=== PATIENT | female | born 1955 | race Hispanic/Latino ===

== ENCOUNTER 2020-03-29 15:35 | Inpatient (IN) | payer OTHER, SELFPAY ==
[~2020-03-29] VITALS: Ht 147.3 cm; Wt 66.9 kg
[2020-03-29 16:20] LABS: BASOPHILS % (AUTO) 0.2 % (0.0-5.0); EOSINOPHILS % (AUTO) 0.2 % (0.0-8.0); HEMATOCRIT 46.2 % (36-48); LYMPHOCYTES % (AUTO) 2.5 % (21.0-51.0); MEAN CORPUSCULAR HEMOGLOBIN 27.5 pg (27.0-33.0); MEAN CORPUSCULAR HGB CONC 31.8 g/dL (32.0-36.0); MEAN CORPUSCULAR VOLUME 86.4 fL (79-99); NEUTROPHILS % (AUTO) 91.9 % (40.0-77.0); PLATELET COUNT (AUTO) 500 K/uL (130-400); RED BLOOD CELL COUNT(AUTO) 5.35 MIL/uL (4.00-5.50); RED CELL DISTRIBUTION WIDTH 15.9 % (11.0-15.5)
[2020-03-29 16:22] LABS: WHITE BLOOD COUNT (AUTO) 32.1 K/uL (4.8-10.8)
[2020-03-29 16:35] LABS: ALBUMIN 4.6 g/dL (3.5-5.0); BILIRUBIN,TOTAL 1.3 mg/dL (0.2-1.0); TOTAL PROTEIN, SERUM 8.4 g/dL (6.0-8.3)
[2020-03-29] MEDS ORDERED: ONDANSETRON HCL 4 MG/2 ML VIAL ONE ×2 (16:43→22:42)
[2020-03-29] MEDS ORDERED: SODIUM CHLORIDE 0.9% 100 ML IV ONE (16:44)
[2020-03-29] MEDS ORDERED: SODIUM CHLORIDE 0.9% 1000ML 1,000 ML IV ONE ×2 (16:44→23:56)
[2020-03-29 16:47] LABS: BAND NEUTROPHILS % (MANUAL) 6 % (0-2); LYMPHOCYTES % (MANUAL) 4 % (22-44); MAN.DIFF COMMENT-IMPRESSION MANUAL DIFFERENTIAL; MONOCYTES % (MANUAL) 3 % (2-9); REACTIVE LYMPHOCYTES 3 % (0-0); SEGMENTED NEUTROPHILS % 84 % (40-70)
[2020-03-29 16:49] LABS: PLATELET MORPHOLOGY COMMENT LARGE PLTS PRESENT
[2020-03-29 16:50] LABS: POTASSIUM 2.9 mmol/L (3.5-5.1)
[2020-03-29 17:26] LABS: BILIRUBIN,URINE Small (NEGATIVE); COLOR,URINE Dark Yellow (YELLOW); GLUCOSE, URINE (UA) Negative (NEGATIVE); KETONES,URINE Trace mg/dL (NEGATIVE); LEUKOCYTE ESTERASE ,URINE Trace (NEGATIVE); NITRATE,URINE Negative (NEGATIVE); OCCULT BLOOD,URINE Negative (NEGATIVE); PH,URINE 5.5 (5.0-8.0); PROTEIN,URINE POS 2+ mg/dL (NEGATIVE)
[2020-03-29] MEDS ORDERED: CEFTRIAXONE SODIUM 1 GM ONE (17:36)
[2020-03-29] MEDS ORDERED: AZITHROMYCIN 500MG+NS 250ML 250 ML IV ONE (17:36)
[2020-03-29 17:44] LABS: INR 0.93 (0.85-1.15); PARTIAL THROMBOPLASTIN TIME 27.1 SEC (26.3-35.5); PROTHROMBIN TIME 10.1 SEC (9.6-11.6)
[2020-03-29 18:16] LABS: APPEARANCE,URINE CLOUDY (CLEAR)
[2020-03-29 18:17] LABS: BACTERIA,URINE Moderate /HPF (None Seen); RBC,URINE 0-1 /HPF (0-1); SQUAMOUS EPITHELIAL CELL,UR Few /HPF (0-2)
[2020-03-29] MEDS: SODIUM CHLORIDE 0.9% 1000ML 1,000 ML IV SCH (18:58)
[2020-03-29] MEDS ORDERED: ONDANSETRON HCL 4 MG/2 ML VIAL IV PRN (19:00)
[2020-03-29] MEDS ORDERED: LACTULOSE 20 GM/30 ML UDCUP PO PRN (19:00)
[2020-03-29] MEDS ORDERED: MORPHINE SULFATE 2 MG/ML 1ML SYG IV PRN (19:00)
[2020-03-29] MEDS ORDERED: ALBUTEROL INHALER 90MCG/INH IH PRN (19:00)
[2020-03-29] MEDS ORDERED: ACETAMINOPHEN 325 MG TAB PO PRN ×2 (19:00)
[2020-03-29] MEDS ORDERED: DOXYCYCLINE 100MG+NS 250ML 250 ML IV SCH (19:15)
[2020-03-29] MEDS: CEFEPIME HCL 1 GM VIAL IVP SCH (19:15)
[2020-03-29] MEDS ORDERED: CEFEPIME HCL 1 GM VIAL ONE (19:41)
[2020-03-29 19:51] LABS: HEMOGLOBIN A1C 6.2 % (4.0-6.0)
[2020-03-29] MEDS ORDERED: VANCOMYCIN 1GM+NS 250ML 250 ML IV ONE (22:00)
[2020-03-29] MEDS ORDERED: ZOSYN 3.375GM+NS 50ML 50 ML IV ONE (22:40)
[2020-03-30] VITALS (28 sets, daily range): BP systolic 101–159; BP diastolic 38–90
--- NOTE | 2020-03-30 | NUR ---
ADMISSION PT RECEIVED FROM ER AT THIS TIME. PT AAO X 3 DENIES ANY CHEST PAIN OR SHORTNESS OF BREATH. PT WEAK ABLE TO SLOWLY TRANSFER SELF FROM STRETCHER TO BED. PT PLACED ON BEDSIDE MONITOR HR 80'S SR WITH PAC'S. DIMINISHED BREATH SOUNDS AUSCULTATED. LEFT NARE NG TUBE TUBE NOTED PLACEMENT ASSESSED AND CONFIRMED WITH AIR BOLUS THEN PLACED TO LIWS DRAINAGE BLOOD TINGED. PT WITH 20G PIV TO LEFT FOREARM INFUSING PROTONIX AND 18G PIV TO RIGHT AC INFUSING VANCOMYCIN TO BE FOLLOWED WITH NS AT 100ML/HR. PLAN OF CARE DISCUSSED WILL CONTINUE TO MONITOR. SCDS APPLIED TO BILATERAL LOWER EXTS. SEE ASSESSMENT
[2020-03-30] MEDS: PANTOPRAZOLE SODIUM 80 MG in SODIUM CHLORIDE 0.9% 100 ML IV SCH ×2 (01:23→14:00)
[2020-03-30 03:45] LABS: BASOPHILS % (AUTO) 0.1 % (0.0-5.0); EOSINOPHILS % (AUTO) 0.1 % (0.0-8.0); HEMATOCRIT 37.5 % (36-48); LYMPHOCYTES % (AUTO) 2.5 % (21.0-51.0); MEAN CORPUSCULAR HEMOGLOBIN 27.8 pg (27.0-33.0); MEAN CORPUSCULAR HGB CONC 32.3 g/dL (32.0-36.0); MEAN CORPUSCULAR VOLUME 86.2 fL (79-99); MONOCYTES % (AUTO) 4.8 % (3.0-13.0); NEUTROPHILS % (AUTO) 91.7 % (40.0-77.0); PLATELET COUNT (AUTO) 275 K/uL (130-400); RED BLOOD CELL COUNT(AUTO) 4.35 MIL/uL (4.00-5.50); RED CELL DISTRIBUTION WIDTH 15.8 % (11.0-15.5); WHITE BLOOD COUNT (AUTO) 25.3 K/uL (4.8-10.8)
[2020-03-30 04:04] LABS: CREATININE 2.3 mg/dL (0.5-1.5)
[2020-03-30] MEDS: SODIUM CHLORIDE 0.9% 1000ML 1,000 ML IV SCH ×3 (04:28→19:47)
[2020-03-30 04:48] LABS: POTASSIUM 2.8 mmol/L (3.5-5.1)
[2020-03-30] MEDS ORDERED: CEFEPIME HCL 1 GM VIAL ONE ×2 (05:11→10:13)
[2020-03-30] MEDS ORDERED: POTASSIUM CHLORIDE 20 MEQ/100 ML BAG IV ONE (05:30)
[2020-03-30] MEDS: INSULIN HUMULIN R 100 UNIT/ML 3ML SQ SCH ×4 (06:00→17:46)
[2020-03-30] MEDS: CEFEPIME HCL 1 GM VIAL IVP SCH (06:04)
[2020-03-30] MEDS ORDERED: RENAL DOSE IV PRN (09:30)
[2020-03-30 09:39] LABS: AMPHET/METH SCREEN,URINE NEGATIVE (NEGATIVE); BARBITURATE SCREEN, URINE NEGATIVE (NEGATIVE); BENZODIAZEPINES SCREEN,URINE NEGATIVE (NEGATIVE); CANNABINOID SCREEN,URINE NEGATIVE (NEGATIVE); COCAINE SCREEN,URINE NEGATIVE (NEGATIVE); OPIATE SCREEN,URINE NEGATIVE (NEGATIVE); PHENCYCLIDINE SCREEN,URINE NEGATIVE (NEGATIVE)
[2020-03-30 09:44] LABS: CREATININE,URINE RANDOM 337 mg/dL (30-135); SODIUM,URINE RANDOM 27 mmol/l (40-220)
[2020-03-30] MEDS ORDERED: CEFEPIME HCL 1 GM VIAL IVP SCH (10:00)
[2020-03-30] MEDS ORDERED: POTASSIUM CHLORIDE 20MEQ/100ML 100 ML IV ONE (10:14)
[2020-03-30] MEDS: POTASSIUM CHLORIDE 20 MEQ/100 ML BAG IV SCH ×2 (10:33→18:22)
[2020-03-30] MEDS ORDERED: SODIUM CHLORIDE 0.9% 1000ML 1,000 ML IV ONE (11:00)
--- NOTE | 2020-03-30 11:56 | NUR ---
EGD Patient taken to EGD
[2020-03-30] MEDS ORDERED: SUCCINYLCHOLINE 200MG/10ML SYR ONE (12:17)
[2020-03-30] MEDS ORDERED: PROPOFOL 10 MG/ML 20ML VIAL IV ONE (12:17)
--- NOTE | 2020-03-30 15:36 | NUR ---
MARICRUZ PLAN MD IN ROOM WITH PATIENT GOING TO TRANSFER TO HIGHER LEVEL OF CARE. [employer] COMM[employer]ICATION[employer] SOFTWARE CONSULTANT WORKING ON TRANSFER. Addendum: 03/30/20 at 1537 by PERICO WESTON RN CM Amended: Links added.
[2020-03-30 17:25] LABS: POTASSIUM 3.2 mmol/L (3.5-5.1)
[2020-03-30 17:31] LABS: CREATININE 1.5 mg/dL (0.5-1.5)
[2020-03-30] MEDS ORDERED: LIDOCAINE HCL-MPF 1% 2ML VIAL IV PRN (18:00)
[2020-03-30] MEDS ORDERED: POTASSIUM CHLORIDE 10MEQ/100ML 100 ML IV PRN (18:00)
--- NOTE | 2020-03-30 19:00 | NUR ---
[facility] called for transport
--- NOTE | 2020-03-30 19:05 | NUR ---
[facility] medical report Gave report to Jayla HANCOCK from [facility]. Patients plan of care reviewed. All questions answered patient to be transferred for surgical intervention.
--- NOTE | 2020-03-30 21:12 | NUR ---
late entry 1350 transfer request for higher level of care for surgical service for gastric volvulus since no surgeon [employer] liaison [place] [facility] [place] [address] [place] staff surgeons prior to transferring spoke with Dr harrison decline not oc. 1425 DR rubio in surgery unable to take pt [address] rollins. [address] [facility] declined no beds. [address] [facility] declined no beds. [address] [facility] ask for my doctor to call and speak with Dr ernestina morales at [phone] for 1:1 report; 1500 information fax to [facility] 1520 Dr coe here on rounds to speak to spouse regarding transfer. 1535 information re fax to [facility]. 1653 [facility] call back still working on acceptance by surgeon and oc district administrator. [facility] call back Surgeon Dr Ha requesting for Lap endo stitch and surgi dac which will be sent with pt . 1802 [facility] call back with acceptance to ICU primary nurse to call report to [phone] Manuel and surgeon Dr Ha. consent sign and EMS set up . now awaiting for EMS. Corbin luis
--- NOTE | 2020-03-30 22:05 | NUR ---
handoff given to [facility] medics patient being transferred to [place], patient hemodynamically stable alert and oriented, patient requesting for to notified.
== END 2020-03-30 22:04 | disposition short-term general hospital (02) | DRG 871 ==
LOC: EDH 15:35 → EDHIP 15:36 → 2CH 23:52
PROVIDERS: ADMIT Internal Medicine; ATTEND Internal Medicine
PROC: 0DB68ZX Excision of Stomach, Via Natural or Artificial Opening Endoscopic, Diagnostic (ICD-10-PCS; principal; 2020-03-30)
PROC: 0D9680Z Drainage of Stomach with Drainage Device, Via Natural or Artificial Opening Endoscopic (ICD-10-PCS; 2020-03-30)
DX: A41.9 Sepsis, unspecified organism (principal); J18.9 Pneumonia, unspecified organism; K56.2 Volvulus; K57.31 Diverticulosis of large intestine without perforation or abscess with bleeding; N17.9 Acute kidney failure, unspecified; N39.0 Urinary tract infection, site not specified; E87.4 Mixed disorder of acid-base balance; K31.1 Adult hypertrophic pyloric stenosis; E87.6 Hypokalemia; D64.9 Anemia, unspecified; E86.1 Hypovolemia; K21.0 Gastro-esophageal reflux disease with esophagitis; K44.9 Diaphragmatic hernia without obstruction or gangrene; K80.20 Calculus of gallbladder without cholecystitis without obstruction; Z20.828 Contact with and (suspected) exposure to other viral communicable diseases; K31.89 Other diseases of stomach and duodenum
CPT/HCPCS: 36415; 43239; 71045; 71250; 74150; 76770; 80048; 80053; 80305; 81001; 82270; 82570; 82948; 83036; 83605; 84300; 84484; 85025; 85378; 85610; 85730; 86140; 86850; 86900; 86901; 86922; 87040; 87088; 87486; 87581; 87633; 87635; 87798; 88305; 88313; 88342; 93005; 99291; A4344; C9113; G0378; J0330; J0456; J0692; J0696; J2405; J2543; J2704; J3370; J3480; J3490; J7030

== ENCOUNTER → 2022-10-03 | Outpatient (CLI) | payer OTHER | END | disposition home or self-care (01) | LOC: SHCH 07:56 | PROVIDERS: ATTEND Student in an Organized Health Care Education/Training Program | DX: I51.7 Cardiomegaly (principal); E78.5 Hyperlipidemia, unspecified; R00.1 Bradycardia, unspecified | CPT/HCPCS: 93306 ==

== ENCOUNTER → 2022-10-29 | Outpatient (CLI) | payer OTHER ==
[2022-10-29 16:22] LABS: BASOPHILS % (AUTO) 0.4 % (0.0-5.0); EOSINOPHILS % (AUTO) 2.5 % (0.0-8.0); HEMATOCRIT 43.9 % (36-48); LYMPHOCYTES % (AUTO) 16.8 % (21.0-51.0); MEAN CORPUSCULAR HGB CONC 28.9 g/dL (32.0-36.0); MEAN CORPUSCULAR VOLUME 86.4 fL (79-99); MONOCYTES % (AUTO) 5.9 % (3.0-13.0); NEUTROPHILS % (AUTO) 73.8 % (40.0-77.0); PLATELET COUNT (AUTO) 240 K/uL (130-400); RED BLOOD CELL COUNT(AUTO) 5.08 MIL/uL (4.00-5.50); RED CELL DISTRIBUTION WIDTH 14.7 % (11.0-15.5); WHITE BLOOD COUNT (AUTO) 7.1 K/uL (4.8-10.8)
[2022-10-29 16:46] LABS: ALBUMIN 3.6 g/dL (3.5-5.0); CREATININE 1.2 mg/dL (0.5-1.5); POTASSIUM 4.7 mmol/L (3.5-5.1); THYROID STIMULATING HORMONE 3.51 uIU/mL (0.36-3.74); TOTAL PROTEIN, SERUM 6.8 g/dL (6.0-8.3)
[2022-10-29 16:56] LABS: HEMOGLOBIN A1C 6.8 % (4.0-6.0)
== END | disposition home or self-care (01) ==
LOC: LAB 09:07
PROVIDERS: ATTEND Student in an Organized Health Care Education/Training Program
DX: E78.1 Pure hyperglyceridemia (principal); E78.5 Hyperlipidemia, unspecified; R00.1 Bradycardia, unspecified; Z79.82 Long term (current) use of aspirin; Z79.899 Other long term (current) drug therapy
CPT/HCPCS: 36415; 80053; 80061; 83036; 84443; 85025

== ENCOUNTER → 2024-04-08 | Outpatient (CLI) | payer OTHER, MEDICARE ==
[2024-04-08 15:47] LABS: ALBUMIN 3.6 g/dL (3.5-5.0); BILIRUBIN,TOTAL 0.5 mg/dL (0.2-1.0); CREATININE 1.1 mg/dL (0.5-1.0); POTASSIUM 4.5 mmol/L (3.5-5.1); TOTAL PROTEIN, SERUM 6.8 g/dL (6.0-8.3)
== END | disposition home or self-care (01) ==
LOC: LAB 11:31
PROVIDERS: ATTEND Student in an Organized Health Care Education/Training Program
DX: R00.1 Bradycardia, unspecified (principal); E78.5 Hyperlipidemia, unspecified; Z82.49 Family history of ischemic heart disease and other diseases of the circulatory system
CPT/HCPCS: 36415; 80053

== ENCOUNTER → 2024-05-17 | Outpatient (CLI) | payer OTHER | END | disposition home or self-care (01) | LOC: RAH 11:21 | PROVIDERS: ATTEND Student in an Organized Health Care Education/Training Program | DX: K44.9 Diaphragmatic hernia without obstruction or gangrene (principal); M47.815 Spondylosis without myelopathy or radiculopathy, thoracolumbar region; Z82.49 Family history of ischemic heart disease and other diseases of the circulatory system | CPT/HCPCS: 75574 ==

== ENCOUNTER → 2024-09-22 | Outpatient (CLI) | payer OTHER ==
--- NOTE | 2024-09-22 14:40 | HMCIMG ---
CT HEAD/BRAIN W/O CONTRAST HISTORY: Constant headaches COMPARISON: None TECHNIQUE: Multiple sequential axial images of the head were obtained from the base of the skull through vertex. Patient was not given contrast through intravenous route. FINDINGS: The ventricles and extraventricular CSF spaces are nondilated for patient's age. There is no midline shift, mass effect or herniation. No acute intracranial bleed is seen. Visualized portion of the paranasal sinuses are grossly within normal limits. IMPRESSION: 1. No acute intracranial bleed is seen. CT was performed with one or more following dose reduction techniques: automated exposure control, adjustment of the mA and kv according to patient's size, or use of a iterative reconstruction technique.
== END | disposition home or self-care (01) ==
LOC: RAH 11:11
PROVIDERS: ATTEND Internal Medicine
DX: R41.3 Other amnesia (principal); G44.52 New daily persistent headache (NDPH)
CPT/HCPCS: 70450